=== PATIENT | male | born 1990 | race Caucasian/White ===

== ENCOUNTER 2024-08-17 02:26 | Inpatient (IN) | payer MEDICAID, SELFPAY ==
[~2024-08-17] VITALS: Ht 180.3 cm; Wt 126.6 kg
[2024-08-17 07:15] LABS: BARBITURATES URINE NEGATIVE (NEGATIVE); BENZODIAZEPINES URINE NEGATIVE (NEGATIVE); CANNABINOIDS URINE NEGATIVE (NEGATIVE); COCAINE METABOLITE URINE NEGATIVE (NEGATIVE); METHADONE URINE NEGATIVE (NEGATIVE); OPIATES URINE NEGATIVE (NEGATIVE); PHENCYCLIDINE URINE NEGATIVE (NEGATIVE)
[2024-08-17 07:18] LABS: AMPHETAMINES LEVEL URINE POSITIVE (NEGATIVE)
[2024-08-17] MEDS ORDERED: HOME MED LIST COMPLETE! XX SCH (08:35)
[2024-08-17] MEDS ORDERED: ACETAMINOPHEN 325 MG TAB PO PRN (08:40)
[2024-08-17] MEDS ORDERED: IBUPROFEN 400MG TAB PO PRN (08:40)
[2024-08-17] MEDS ORDERED: traZODone 50 MG TAB PO PRN (08:40)
[2024-08-17] MEDS ORDERED: MOM 30ML SUSPENSION UDC PO PRN (08:40)
[2024-08-17] MEDS ORDERED: diphenhydrAMINE 25MG CAP PO PRN (08:40)
[2024-08-17] MEDS ORDERED: LORazepam 2 MG TAB PO PRN (08:40)
[2024-08-17] MEDS ORDERED: MAALOX 30 ML SUSP *UDC PO PRN (08:40)
[2024-08-17] MEDS ORDERED: OLANZapine ORAL DISINTEGRATING TAB 5MG PO PRN (08:40)
[2024-08-17] MEDS: THIAMINE 100 MG TAB PO SCH (09:36)
[2024-08-17] MEDS: MULTIVITAMINS/MINERALS THERAP 1 TAB PO SCH (09:36)
[2024-08-17] MEDS: FOLIC ACID 1MG TAB PO SCH (09:36)
[2024-08-17 10:35] VITALS: BP 136/78; TEMP 97.5; O2SAT 98
[2024-08-17] MEDS: NICOTINE 21MG/24HR 1 EA TRANSDERMAL TD SCH (13:20)
[2024-08-17 15:59] VITALS: BP 118/63; TEMP 97.7; O2SAT 100
[2024-08-17 17:45] VITALS: BP 134/85; TEMP 97.1; O2SAT 97
[2024-08-17 22:20] VITALS: BP 116/63
[2024-08-18 06:39] VITALS: BP 127/77; TEMP 97.1; O2SAT 98
[2024-08-18 08:00] VITALS: BP 127/77
[2024-08-18] MEDS ORDERED: traZODone 100 MG TAB PO PRN (13:40)
[2024-08-18 14:50] VITALS: BP 128/79; TEMP 98.2; O2SAT 99
[2024-08-18] MEDS: ESCITALOPRAM OXALATE 10 MG TAB (LEXAPRO) PO SCH (14:59)
[2024-08-19 06:12] VITALS: BP 118/77; TEMP 97.2; O2SAT 97
[2024-08-19 08:00] VITALS: BP 118/77
[2024-08-19] MEDS: POLYSPORIN TOPICAL OINTMENT 15GM TOP SCH (09:00)
[2024-08-19 15:27] VITALS: BP 134/86; TEMP 97.9; O2SAT 95
[2024-08-19 16:13] VITALS: BP 136/91
[2024-08-20 00:23] VITALS: BP 127/70
[2024-08-20 06:26] VITALS: BP 148/87; TEMP 97.1; O2SAT 98
[2024-08-20] MEDS: BENZTROPINE 1 MG TAB PO ONE (14:35)
[2024-08-20] MEDS ORDERED: BENZTROPINE 1 MG TAB PO ONE (15:30)
[2024-08-20] MEDS ORDERED: BENZTROPINE MESYLATE 2MG/2ML VIAL IM ONE (15:30)
[2024-08-20] MEDS: BENZTROPINE MESYLATE 2MG/2ML VIAL IM ONE (16:06)
[2024-08-20 16:40] VITALS: BP 139/82; TEMP 98.3; O2SAT 99
[2024-08-21 06:09] VITALS: BP 138/87; TEMP 98.5; O2SAT 97
[2024-08-21] MEDS ORDERED: traZODone 100 MG TAB PO SCH (10:50)
[2024-08-21 15:49] VITALS: BP 156/87; TEMP 98.7; O2SAT 98
[2024-08-21] MEDS: traZODone 100 MG TAB PO SCH (20:16)
[2024-08-22 06:07] VITALS: BP 156/80; TEMP 98.7; O2SAT 97
[2024-08-22] MEDS ORDERED: TRAZ-257 PO (09:43)
[2024-08-22] MEDS ORDERED: LEXA1TAB PO (09:43)
[2024-08-22] MEDS: ONDANSETRON 4MG ORAL DISINTEGRATING TAB PO ONE (10:24)
== END 2024-08-22 13:44 | disposition home or self-care (01) | DRG 754 ==
LOC: M ED 02:26 → M ED INP 08:36 → M PSY 10:23
PROVIDERS: ADMIT Psychiatry & Neurology Psychiatry; ATTEND Psychiatry & Neurology Psychiatry
DX: F32.A Depression, unspecified (principal); R45.850 Homicidal ideations; R45.851 Suicidal ideations; F15.90 Other stimulant use, unspecified, uncomplicated; F11.90 Opioid use, unspecified, uncomplicated; Z88.5 Allergy status to narcotic agent; Z91.51 Personal history of suicidal behavior